=== PATIENT | female | born 1955 | race Caucasian/White ===

== ENCOUNTER → 2017-07-22 | Outpatient (CLI) | payer BC ==
--- NOTE | 2017-07-23 09:25 | MM ---
Reason for exam: screening (asymptomatic). Last mammogram was performed 15 years and 2 months ago. History: Patient is postmenopausal and is nulliparous. Physical Findings: A clinical breast exam by your physician is recommended on an annual basis and results should be correlated with mammographic findings. MG 3D Screening Mammo W/Cad Bilateral CC and MLO view(s) were taken. Prior study comparison: May 10, 2002, bilateral diagnostic mammogram. The breast tissue is heterogeneously dense. This may lower the sensitivity of mammography. There is no discrete abnormality. No significant changes when compared with prior studies. ASSESSMENT: Negative, BI-RAD 1 RECOMMENDATION: Routine screening mammogram of both breasts in 1 year.
== END ==
LOC: RADMAMWWP 15:19
PROVIDERS: ATTEND Family Medicine
DX: Z12.31 Encounter for screening mammogram for malignant neoplasm of breast (principal)
CPT/HCPCS: 77063; 77067

== ENCOUNTER 2019-12-21 14:54 | Emergency (ER) | payer OTHER ==
[2019-12-21 15:25] LABS: Basophils # (A) 0.1 k/uL (0-0.2); Basophils % (A) 1 %; Eosinophils # (A) 0.1 k/uL (0-0.7); Eosinophils % (A) 1 %; HGB 13.3 gm/dL (11.4-16.0); Lymphocytes # (A) 3.2 k/uL (1.0-4.8); Lymphocytes % (A) 31 %; MCH 27.8 pg (25.0-35.0); MCHC 33.2 g/dL (31.0-37.0); MCV 83.6 fL (80.0-100.0); Mean Platelet Volume 7.2; Monocytes # (A) 0.5 k/uL (0-1.0); Monocytes % (A) 5 %; Neutrophils # (A) 6.4 k/uL (1.3-7.7); Neutrophils % (A) 61 %; Platelet Count 211 k/uL (150-450); RBC 4.79 m/uL (3.80-5.40); RDW 13.2 % (11.5-15.5); WBC 10.5 k/uL (3.8-10.6)
[2019-12-21 15:28] LABS: Glucose,Whole Blood 131 mg/dL (75-99)
[2019-12-21 15:29] VITALS: RESP 17; TEMP 98.1
[2019-12-21 15:30] LABS: ALT 15 U/L (4-34); AST 25 U/L (14-36); African American GFR (CKD) >90 (>60 ml/min/1.73 sqM); Albumin 4.3 g/dL (3.5-5.0); Alkaline Phosphatase 94 U/L (38-126); Anion Gap 8 mmol/L; Blood Urea Nitrogen 16 mg/dL (7-17); Calcium 9.4 mg/dL (8.4-10.2); Carbon Dioxide 22 mmol/L (22-30); Chloride 107 mmol/L (98-107); Glucose 134 mg/dL (74-99); Non-African American GFR(CKD) >90 (>60 ml/min/1.73 sqM); Potassium 3.8 mmol/L (3.5-5.1); Sodium 137 mmol/L (137-145); Total Bilirubin 0.8 mg/dL (0.2-1.3); Total Protein 7.1 g/dL (6.3-8.2)
--- NOTE | 2019-12-21 15:37 | CT ---
EXAMINATION TYPE: CT brain wo con for TPA DATE OF EXAM: 12/21/2019 COMPARISON: None INDICATION: Neuro deficit, acute, stroke suspected DLP: 1525.1 mGycm, Automated exposure control for dose reduction was used. CONTRAST: None CT of the brain is performed utilizing 3 mm thick sections through the posterior fossa and 3 mm thick sections through the remaining calvarium. Study is performed within 24 hours of arrival to the hosp ital. Hyperdensity is evident within the fourth ventricle. There is a large right basal ganglion hemorrhage measuring 6.1 x 5.4 x 5.1 cm. This decompresses into the lateral ventricles. Small amount of hemorrh age is within the left lateral ventricle. There is hemorrhage within the third ventricle. There is effacement of the right lateral ventricle and sulci on the right side. Midline shift towards the left is evident estimated at 0.9 cm. No temporal horn dilatation is evident. Quadrigeminal plat e is patent. There is some early effacement of the left ambient cistern. No acute infarcts are evident. There is some hypodensity within the inferior left cerebellum. Ischemi a could be considered. Paranasal sinuses and mastoid air cells within the [id number] are clear. IMPRESSIONS: 1. 6.1 x 5.4 x 5.1cm left basal ganglion hemorrhage decompressing into the ventricular system. No h ydrocephalus within the ventricles is evident at this time. Blood is within all 4 ventricles. There i s some midline shift towards the left estimated at 0.9 cm. Report was called to emergency room physic lino Zaman by Dr. Hduson by telephone [phone] hours 12/21/2019
[2019-12-21] MEDS ORDERED: niCARdipine 20 MG in SODIUM CHLORIDE 0.9% 192 ML IV SCH (15:45)
--- NOTE | 2019-12-21 15:45 | ED ---
General Adult HPI - General Chief complaint: Neuro Symptoms/Deficit Stated complaint: POSS STROKE Time Seen by Provider: 12/21/19 14:56 Source: patient, EMS, RN notes reviewed Mode of arrival: EMS Limitations: altered mental status, physical limitation - History of Present Illness Initial comments: Patient is a 64-year-old female presenting to the emergency department with concern for stroke. EMS reports patient drove to a [employer] and fell getting out of her car. Patient had weakness and was altered when found by bystanders. Patient has garbled speech and limited ability to provide history. Unclear patient has history of similar symptoms previously. Exact onset is unclear however EMS does not believe patient could've driven to the [employer] store in the condition that she was then. Review of Systems ROS Statement: Those systems with pertinent positive or pertinent negative responses have been documented in the HPI. ROS Other: All systems not noted in ROS Statement are negative. Limitations: ROS unobtainable due to patients medical condition Past Medical History Past Medical History: Unable to Obtain History of Any Multi-Drug Resistant Organisms: Unobtainable Past Surgical History: Unable to Obtain Past Psychological History: Unable to Obtain Smoking Status: Unknown if ever smoked Past Alcohol Use History: Unable to Obtain Past Drug Use History: Unable to Obtain General Exam Limitations: altered mental status, physical limitation General appearance: alert Head exam: Present: normocephalic Eye exam: Present: normal appearance, PERRL, other (Eyes deviated to the right. Unable to visualize to left) ENT exam: Present: normal oropharynx Neck exam: Present: normal inspection. Absent: tenderness Respiratory exam: Present: normal lung sounds bilaterally Cardiovascular Exam: Present: regular rate, normal rhythm GI/Abdominal exam: Present: soft. Absent: tenderness Back exam: Present: normal inspection Neurological exam: Present: alert, oriented X3 (Garbled speech, very difficult to understand), other (Left-sided neglect.) Expanded Neurological exam: Present: protecting the airway Speech: Present: expressive aphasia Cranial nerves: EOM's Intact: Abnormal Left (Unable to deviate ice to the left) Motor strength exam: RUE: 5, LUE: 0, RLE: 5, LLE: 0 Eye Response: (4) open spontaneously Motor Response: (6) obeys commands Verbal Response: (5) oriented Psychiatric exam: Present: normal affect, normal mood Skin exam: Present: normal color Course Vital Signs 12/21/19 12/21/19 12/21/19 15:25 15:27 15:40 Temperature 98.1 F 98.1 F 98.1 F Pulse Rate 83 85 70 Respiratory 16 17 17 Rate Blood Pressure 186/97 175/110 179/102 O2 Sat by Pulse 99 99 99 Oximetry 12/21/19 15:55 Temperature 98.1 F Pulse Rate 70 Respiratory 17 Rate Blood Pressure 186/91 O2 Sat by Pulse 100 Oximetry - Reevaluation(s) Reevaluation #1: 12/21/19 15:41 Case was again discussed with Dr. Anglin including CT results. He cannot visualize films right now. He does request Cardene drip for systolic blood pressure less than 160 and talked to neurosurgeon at [facility]. 12/21/19 16:06 Patient reevaluated. Case was discussed with Dr. Soto and [facility] who will accept transfer. He does recommend calling neurosurgery as well. Dr. Mendieta did call back and is familiar with the case. He states he will contact neurosurgery and to transfer the patient now. Patient is currently maintaining her airway and does have positive gag. No worsening of symptoms since arrival. He agrees patient does not need intubation at this time. 12/21/19 16:08 Cardene drip was increased to 10 Medical Decision Making - Lab Data Result diagrams: 12/21/19 15:11 12/21/19 15:11 Lab Results 12/21/19 12/21/19 12/21/19 Range/Units 15:11 15:11 15:11 WBC 10.5 (3.8-10.6) k/uL RBC 4.79 (3.80-5.40) m/uL Hgb 13.3 (11.4-16.0) gm/dL Hct 40.0 (34.0-46.0) % MCV 83.6 (80.0-100.0) fL MCH 27.8 (25.0-35.0) pg MCHC 33.2 (31.0-37.0) g/dL RDW 13.2 (11.5-15.5) % Plt Count 211 (150-450) k/uL Neutrophils % 61 % Lymphocytes % 31 % Monocytes % 5 % Eosinophils % 1 % Basophils % 1 % Neutrophils # 6.4 (1.3-7.7) k/uL Lymphocytes # 3.2 (1.0-4.8) k/uL Monocytes # 0.5 (0-1.0) k/uL Eosinophils # 0.1 (0-0.7) k/uL Basophils # 0.1 (0-0.2) k/uL Sodium 137 (137-145) mmol/L Potassium 3.8 (3.5-5.1) mmol/L Chloride 107 (98-107) mmol/L Carbon Dioxide 22 (22-30) mmol/L Anion Gap 8 mmol/L BUN 16 (7-17) mg/dL Creatinine 0.56 (0.52-1.04) mg/dL Est GFR (CKD-EPI)AfAm >90 (>60 ml/min/1.73 sqM) Est GFR (CKD-EPI)NonAf >90 (>60 ml/min/1.73 sqM) Glucose 134 H (74-99) mg/dL POC Glucose (mg/dL) (75-99) mg/dL POC Glu Gift Consultant ID Calcium 9.4 (8.4-10.2) mg/dL Total Bilirubin 0.8 (0.2-1.3) mg/dL AST 25 (14-36) U/L ALT 15 (4-34) U/L Alkaline Phosphatase 94 (38-126) U/L Troponin I <0.012 (0.000-0.034) ng/mL Total Protein 7.1 (6.3-8.2) g/dL Albumin 4.3 (3.5-5.0) g/dL 12/21/19 Range/Units 15:26 WBC (3.8-10.6) k/uL RBC (3.80-5.40) m/uL Hgb (11.4-16.0) gm/dL Hct (34.0-46.0) % MCV (80.0-100.0) fL MCH (25.0-35.0) pg MCHC (31.0-37.0) g/dL RDW (11.5-15.5) % Plt Count (150-450) k/uL Neutrophils % % Lymphocytes % % Monocytes % % Eosinophils % % Basophils % % Neutrophils # (1.3-7.7) k/uL Lymphocytes # (1.0-4.8) k/uL Monocytes # (0-1.0) k/uL Eosinophils # (0-0.7) k/uL Basophils # (0-0.2) k/uL Sodium (137-145) mmol/L Potassium (3.5-5.1) mmol/L Chloride (98-107) mmol/L Carbon Dioxide (22-30) mmol/L Anion Gap mmol/L BUN (7-17) mg/dL Creatinine (0.52-1.04) mg/dL Est GFR (CKD-EPI)AfAm (>60 ml/min/1.73 sqM) Est GFR (CKD-EPI)NonAf (>60 ml/min/1.73 sqM) Glucose (74-99) mg/dL POC Glucose (mg/dL) 131 H (75-99) mg/dL POC Glu Gift Consultant ID Noelle Foley Calcium (8.4-10.2) mg/dL Total Bilirubin (0.2-1.3) mg/dL AST (14-36) U/L ALT (4-34) U/L Alkaline Phosphatase (38-126) U/L Troponin I (0.000-0.034) ng/mL Total Protein (6.3-8.2) g/dL Albumin (3.5-5.0) g/dL - Radiology Data Radiology results: report reviewed (Is discussed with reality just with bleed an d 0.9 shift with early effacement of quadrant abdominal plate and decompression 2 ventricles) Critical Care Time Critical Care Time: Yes Total Critical Care Time: 45 Disposition Clinical Impression: Intracranial hemorrhage, Hemorrhagic stroke Disposition: OTHER INSTITUTION NOT DEFINED Condition: Critical Is patient prescribed a controlled substance at d/c from ED?: No Referrals: None,Stated [Primary Care Provider] - 1-2 days Time of Disposition: 16:08 - Out of Hospital Transfer - Req. Specs Out of Hospital Transfer - Requested Specifics: Other Emergency Center
--- NOTE | 2019-12-21 15:48 | CT ---
EXAMINATION TYPE: CT angio head neck DATE OF EXAM: 12/21/2019 HISTORY: Neuro deficit, acute, stroke suspected COMPARISON: None CT DLP: 1525.1 mGycm. Automated Exposure Control for Dose Reduction was Utilized. TECHNIQUE: CTA scan of the neck is performed with IV Contrast, patient injected with 65 mL of Isovue 370, axial images are obtained, coronal and sagittal reformatted images are reviewed. Three-D recons tructed images are created on an independent workstation and reviewed. Source images are reviewed. FINDINGS: Carotid/Vascular Structures: Common carotid arteries bifurcate normally into internal and external ca rotid arteries. Carotid bifurcations appear normal. The internal carotid arteries are patent to the level of the skull base. Vertebral arteries are codominant. Cervical of Torres: The internal carotid arteries bifurcate into A1 and M1 segments. The anterior com municating artery appears patent. Left posterior communicating artery is patent. There appears to be a small caliber right posterior communicating artery patent. Left posterior communicating artery is p atent. Other: Right basal ganglion hemorrhage is again evident. Small amount of contrast is present centrall y. Series 505 image 22. IMPRESSION: 1. Right basal ganglion intracranial hemorrhage 2. No flow-limiting stenosis bilateral carotid bifurcations. 3. Normal chenega of Torres
[2019-12-21 16:00] VITALS: PULSE 70
[2019-12-21 16:09] LABS: Partial Thromboplastin Time 21.8 sec (22.0-30.0)
[2019-12-21 16:32] VITALS: BP 160/79
--- NOTE | 2019-12-21 16:34 | XR ---
EXAMINATION TYPE: XR chest 1V DATE OF EXAM: 12/21/2019 COMPARISON: None INDICATION: Altered mental status TECHNIQUE: Single frontal view of the chest is obtained. FINDINGS: The heart size is normal. The pulmonary vasculature is normal. Mild infiltrate is at the left base. Correlate for atelectasis and pneumonia. IMPRESSION: 1. Mild left lower lobe infiltrate. Correlate for atelectasis or pneumonia.
== END 2019-12-21 16:33 | disposition other institution (70) ==
LOC: EC 14:54
DX: I61.8 Other nontraumatic intracerebral hemorrhage (principal); I45.10 Unspecified right bundle-branch block; R53.1 Weakness; R47.01 Aphasia; R41.4 Neurologic neglect syndrome; R41.82 Altered mental status, unspecified; H51.8 Other specified disorders of binocular movement
CPT/HCPCS: 36415; 93005; 80053; 84484; 85025; 85610; 85730; 71045; 70496; 70450; 70498; 99291; 96365; Q9967

== ENCOUNTER → 2019-12-21 | Outpatient (CLI) | payer BC, OTHER ==
--- NOTE | 2019-12-21 17:02 | MR ---
EXAMINATION TYPE: MR shoulder LT wo con DATE OF EXAM: 12/21/2019 COMPARISON: None HISTORY: Lt shoulder pain/strain Multiplanar multiecho imaging of the left shoulder was performed without contrast. There is a large shoulder joint effusion. The subscapularis tendon is intact. Biceps tendon is intact . The glenoid joanie appear intact. There is a 13 mm irregular degenerative cyst in the medial aspect of the humeral head in the subchondral region. There is no evidence of a fracture. Scapula appears in tact. There is hypertrophic spurring at the AC joint without significant subacromial impingement. There is a full-thickness vertical defect through the supraspinatus tendon at the superior aspect of the humeral head. There is no retraction of the tendon. The defect measures 5 mm in anterior-posterio r dimension. I see no focal bone destruction. IMPRESSION: Full-thickness vertical tear through the supraspinatus tendon without retraction. Large shoulder joint effusion consistent with synovitis. Degenerative cyst in the humeral head.
== END | disposition home or self-care (01) ==
LOC: RADMRIMAIN 12:44
PROVIDERS: ATTEND Emergency Medicine
DX: M75.122 Complete rotator cuff tear or rupture of left shoulder, not specified as traumatic (principal)